=== PATIENT | female | born 1960 | race Caucasian/White ===

== ENCOUNTER 2023-06-04 10:22 | Emergency (ER) | payer BC ==
[2023-06-04] MEDS ORDERED: Lidocaine/Prilocaine 2.5-2.5% Crm 5 GM Tube TOP ONE (10:33)
[2023-06-04] MEDS: Sodium Chloride 0.9% 1,000 ML IV ONE (11:08)
[2023-06-04 11:22] LABS: BASOPHILS PERCENT AUTO 0.3 % (0.0-1.0); EOSINOPHILS PERCENT AUTO 2.3 % (1.0-3.0); HEMATOCRIT 48.4 % (37.0-47.0); HEMOGLOBIN 16.1 g/dL (12.0-16.0); LYMPHOCYTES PERCENT AUTO 29.1 % (20.5-50.1); MEAN CORPUSCULAR HEMOGLOBIN 28.8 pg (27.0-34.0); MEAN CORPUSCULAR HGB CONC 33.3 g/dL (33.0-35.0); MEAN CORPUSCULAR VOLUME 86.4 fL (80-100); MONOCYTES PERCENT AUTO 9.5 % (2-8); NEUTROPHILS PERCENT AUTO 58.8 % (42.2-75.2); PLATELET COUNT,PLT 291 10^3/uL (150-450); WHITE BLOOD CELL COUNT,WBC 3.9 10^3/uL (5.0-10.0)
[2023-06-04] MEDS: Sodium Chloride 0.9% 10 ML Syringe FLUSH PRN (11:22)
[2023-06-04 11:47] LABS: D-DIMER QUANTITATIVE < 100 ng/mL (0-400)
[2023-06-04 11:51] LABS: A/G RATIO 1.1; ALANINE AMINOTRANSFERASE,ALT 43 U/L (14-59); ALBUMIN 4.1 g/dL (3.4-5.0); ALKALINE PHOSPHATASE 56 U/L (46-116); ANION GAP 12.8 mEq/L (7-13); ASPARTATE AMNIOTRANSFERASE,AST 24 U/L (15-37); BILIRUBIN TOTAL 1.3 mg/dL (0.2-1.0); BLOOD UREA NITROGEN,BUN 19 mg/dL (7-18); BUN/CREATININE RATIO 17.1 (No establ ref range); CALCIUM 9.1 mg/dL (8.5-10.1); CARBON DIOXIDE,CO2 31 mmol/L (21-32); CHLORIDE,CL 98 mmol/L (98-107); CREATININE 1.11 mg/dL (0.55-1.02); EST CRCL DRUG DOSING (CG) 47.93 mL/min; GLUCOSE RANDOM 103 mg/dL (70-99); POTASSIUM,K 3.8 mmol/L (3.5-5.1); PROTEIN TOTAL,TP 7.7 g/dL (6.4-8.2); SODIUM,NA 138 mmol/L (136-145)
[2023-06-04 11:52] LABS: C-REACTIVE PROTEIN < 0.50 ng/dL (<=0.50); ESTIMATED GFR 56 mL/min (>=60)
== END 2023-06-04 13:05 | disposition home or self-care (01) ==
LOC: DL.ED 10:22
DX: M31.6 Other giant cell arteritis (principal); Z88.8 Allergy status to other drugs, medicaments and biological substances
CPT/HCPCS: 36415; 80053; 83605; 85025; 85379; 85610; 85651; 86140; 96360; 99283; 99284-25; J3490; J7030

== ENCOUNTER 2024-07-06 05:38 | Day surgery (SDC) | payer OTHER ==
[~2024-07-06 05:38] MED LIST: Dextrose 5%-0.45% NaCl 1,000 ML IV SCH
[2024-07-06] MEDS: Lactated Ringers 1,000 ML IV SCH (05:55)
== END 2024-07-06 08:08 | disposition home or self-care (01) ==
LOC: DL.ENDO 05:38
PROVIDERS: ATTEND Internal Medicine Gastroenterology
DX: R12 Heartburn (principal); I12.9 Hypertensive chronic kidney disease with stage 1 through stage 4 chronic kidney disease, or unspecified chronic kidney disease; N18.30 Chronic kidney disease, stage 3 unspecified; K21.9 Gastro-esophageal reflux disease without esophagitis; E80.6 Other disorders of bilirubin metabolism; E83.52 Hypercalcemia; E78.5 Hyperlipidemia, unspecified; Z88.5 Allergy status to narcotic agent
CPT/HCPCS: J7120

== ENCOUNTER 2024-07-15 07:27 | Day surgery (SDC) | payer OTHER ==
[2024-07-15] MEDS: Lactated Ringers 1,000 ML IV SCH (08:08)
== END 2024-07-15 10:45 | disposition home or self-care (01) ==
LOC: DL.ENDO 07:27
PROVIDERS: ATTEND Internal Medicine Gastroenterology
DX: Z12.11 Encounter for screening for malignant neoplasm of colon (principal); Z86.0100 Personal history of colon polyps, unspecified; I12.9 Hypertensive chronic kidney disease with stage 1 through stage 4 chronic kidney disease, or unspecified chronic kidney disease; N18.30 Chronic kidney disease, stage 3 unspecified; E80.6 Other disorders of bilirubin metabolism; E83.52 Hypercalcemia
CPT/HCPCS: 45378; J7120